=== PATIENT | male | born 1955 | race Caucasian/White ===

== ENCOUNTER 2018-03-18 10:15 | Day surgery (SDC) | payer OTHER, MEDICARE ==
[2018-03-18] MEDS ORDERED: PROPOFOL 20 ML (11:04)
[2018-03-18] MEDS ORDERED: MIDAZOLAM 1 MG/ML 2 ML INJ (11:04)
[2018-03-18] MEDS: CEFAZOLIN 1 GM/50 ML (PMX) 50 ML IVPB (11:04)
[2018-03-18] MEDS ORDERED: FENTAnyl 50 MCG/ML VIAL (11:04)
== END 2018-03-18 14:33 | disposition home or self-care (01) ==
LOC: GIL 10:15
DX: R13.10 Dysphagia, unspecified (principal); Z86.73 Personal history of transient ischemic attack (TIA), and cerebral infarction without residual deficits; E11.9 Type 2 diabetes mellitus without complications; I10 Essential (primary) hypertension
CPT/HCPCS: 43246

== ENCOUNTER 2018-03-23 00:31 | Inpatient (IN) | payer MEDICARE, OTHER ==
[2018-03-23] MEDS ORDERED: ACETAMINOPHEN 650MG/20.3ML CUP GTB (03:00)
[2018-03-23] MEDS ORDERED: hydrALAzine 20 MG INJ IV (03:00)
[2018-03-23] MEDS: DEXTROSE 5%-0.9% NACL 1,000 ML IV ×2 (03:00→19:41)
[2018-03-23] MEDS ORDERED: ONDANSETRON 4 MG INJ IV (03:00)
[2018-03-23] MEDS ORDERED: DEXTROSE 50% 50 ML SYRINGE IV ×2 (03:30)
[2018-03-23] MEDS ORDERED: GLUCOSE GEL 15 GRAM TUBE PO ×2 (03:30)
[2018-03-23] MEDS ORDERED: GLUCOSE GEL 15 GRAM TUBE BUCCAL (03:30)
[2018-03-23] MEDS ORDERED: GLUCAGON 1 MG INJ IM (03:30)
[2018-03-23] MEDS: PIPER-TAZO 3.375 GM IV (PMX) 100 ML IVPB ×3 (06:26→21:44)
[2018-03-23] MEDS: INSULIN ASPART [NOVOLOG] 3 ML PEN SC ×4 (08:37→23:58)
[2018-03-23] MEDS: INSULIN GLARGINE [LANtus] 3 ML PEN SC (08:37)
[2018-03-23] MEDS: HEPARIN 5,000 UNIT/0.5 ML VIAL SC ×2 (08:38→21:42)
[2018-03-23] MEDS: GABAPENTIN 100 MG CAP GTB ×2 (08:45→21:00)
[2018-03-23] MEDS: AMLODIPINE 5 MG TAB GTB ×2 (08:45→21:00)
[2018-03-23] MEDS: LABETALOL 200 MG TAB PO ×3 (08:46→21:00)
[2018-03-23] MEDS: LISINOPRIL 20 MG TAB GTB ×2 (08:46→21:00)
[2018-03-23] MEDS: FAMOTIDINE 20 MG INJ IV ×2 (08:49→21:41)
[2018-03-23 09:42] LABS: ABNORMAL IP MESSAGE 1; HEMATOCRIT 37.3 % (42.0-52.0); HEMOGLOBIN 12.3 g/dl (14.0-18.0); MEAN CORPUSCULAR HEMOGLOBIN 27.5 pg (29.0-33.0); MEAN CORPUSCULAR VOLUME 83.3 fl (82.0-101.0); MEAN PLATELET VOLUME 11.4 fl (7.4-10.4); PLATELET COUNT 501 10^3/UL (140-415); POSITIVE DIFF @See below; RED BLOOD COUNT 4.48 10^6/ul (4.70-6.10)
[2018-03-23 09:48] LABS: ADD MAN DIFF? YES
[2018-03-23 09:57] LABS: ANION GAP 15 (8-16); BLOOD UREA NITROGEN 33 mg/dl (7-20); CALCIUM 9.4 mg/dl (8.4-10.2); CARBON DIOXIDE 27 mmol/L (21-31); CHLORIDE 109 mmol/L (97-110); CREATININE 1.75 mg/dl (0.61-1.24); GLUCOSE 219 mg/dl (70-220); POTASSIUM 3.9 mmol/L (3.5-5.1); SODIUM 147 mmol/L (135-144)
[2018-03-23 09:58] LABS: PHOSPHORUS 4.6 mg/dl (2.5-4.9)
[2018-03-23 10:17] LABS: ANISOCYTOSIS 1+ (0-0); BAND NEUTROPHILS #M 1.6 10^3/ul (0.0-0.6); BAND NEUTROPHILS % (M) 6 % (0-4); GIANT THROMBO% (M) 2 % (0-0); LYMPHOCYTES #M 1.6 10^3/ul (0.8-2.9); LYMPHOCYTES % (M) 6 % (15-51); MICROCYTOSIS 1+ (0-0); MONOCYTE #M 1.3 10^3/ul (0.3-0.9); MONOCYTES % (M) 5 % (0-11); PLATELET ESTIMATE NORMAL; POIKILOCYTOSIS 1+ (0-0); REACTIVE LYMPHOCYTES #M 0.5 10^3/ul (0.0-0.0); REACTIVE LYMPHOCYTES% (M) 2 % (0-0); SEG NEUT #M 22.3 10^3/ul (1.6-7.5); SEGMENTED NEUTROPHILS (M) % 81 % (39-77)
[2018-03-23] MEDS: Discontinue current oral sulfonylureas (glyburide, glipizide, and/or glimepiride) prior to XX (10:50)
[2018-03-23] MEDS: HYPOGLYCEMIA PROTOCOL when Glucose is <70 mg/dL or symptomatic <90 mg/dL. XX (10:50)
[2018-03-23] MEDS: LORAZEPAM 2 MG INJ IV (22:53)
[2018-03-24] MEDS: LORAZEPAM 2 MG INJ IV ×2 (04:29→19:35)
[2018-03-24] MEDS: PIPER-TAZO 3.375 GM IV (PMX) 100 ML IVPB ×3 (05:29→22:11)
[2018-03-24] MEDS: INSULIN ASPART [NOVOLOG] 3 ML PEN SC ×4 (05:42→23:52)
[2018-03-24] MEDS: INSULIN GLARGINE [LANtus] 3 ML PEN SC (08:48)
[2018-03-24] MEDS: FAMOTIDINE 20 MG INJ IV ×2 (08:54→20:29)
[2018-03-24] MEDS: GABAPENTIN 100 MG CAP GTB ×2 (08:55→20:04)
[2018-03-24] MEDS: LABETALOL 200 MG TAB PO ×3 (08:55→20:04)
[2018-03-24] MEDS: AMLODIPINE 5 MG TAB GTB ×2 (08:55→20:04)
[2018-03-24] MEDS: LISINOPRIL 20 MG TAB GTB ×2 (08:55→20:04)
[2018-03-24] MEDS: HEPARIN 5,000 UNIT/0.5 ML VIAL SC ×2 (08:57→20:03)
[2018-03-24] MEDS: LABETALOL HCL 20MG INJ IV (10:44)
[2018-03-24 10:59] LABS: ADD MAN DIFF? NO
[2018-03-24 11:04] LABS: WHITE BLOOD COUNT 14.6 10^3/ul (4.8-10.8)
[2018-03-24 11:04] LABS: BASOPHILS % 0.2 % (0.0-2.0); EOSINOPHILS % 0.1 % (0.0-7.0); HEMATOCRIT 36.5 % (42.0-52.0); HEMOGLOBIN 11.8 g/dl (14.0-18.0); LYMPHOCYTES # 1.4 10^3/ul (0.8-2.9); LYMPHOCYTES % 9.4 % (15.0-51.0); MEAN CORPUSCULAR HEMOGLOBIN 27.8 pg (29.0-33.0); MEAN CORPUSCULAR HGB CONC 32.3 g/dl (32.0-37.0); MEAN CORPUSCULAR VOLUME 85.9 fl (82.0-101.0); MEAN PLATELET VOLUME 11.3 fl (7.4-10.4); MONOCYTE # 0.8 10^3/ul (0.3-0.9); MONOCYTES % 5.5 % (0.0-11.0); NEUTROPHIL # 12.3 10^3/ul (1.6-7.5); NEUTROPHILS % 84.4 % (39.0-77.0); PLATELET COUNT 458 10^3/UL (140-415); RED BLOOD COUNT 4.25 10^6/ul (4.70-6.10); RED CELL DISTRIBUTION WIDTH 14.2 % (11.5-14.5)
[2018-03-24 11:25] LABS: ALANINE AMINOTRANSFERASE 24 IU/L (13-69); ALBUMIN 3.7 g/dl (3.3-4.9); ALKALINE PHOSPHATASE 133 IU/L (42-121); ANION GAP 16 (8-16); ASPARTATE AMINO TRANSFERASE 20 IU/L (15-46); BILIRUBIN,INDIRECT 0.3 mg/dl (0-1.1); BILIRUBIN,TOTAL 0.3 mg/dl (0.2-1.3); BLOOD UREA NITROGEN 31 mg/dl (7-20); CALCIUM 9.2 mg/dl (8.4-10.2); CARBON DIOXIDE 24 mmol/L (21-31); CHLORIDE 115 mmol/L (97-110); CREATININE 1.55 mg/dl (0.61-1.24); GLUCOSE 168 mg/dl (70-220); POTASSIUM 3.5 mmol/L (3.5-5.1); SODIUM 151 mmol/L (135-144); TOTAL PROTEIN 7.8 g/dl (6.1-8.1)
[2018-03-24] MEDS: CLONIDINE 0.1 MG/24 HR PATCH TRANSDERM (12:20)
[2018-03-24] MEDS: DEXTROSE 5%-0.9% NACL 1,000 ML IV (14:56)
[2018-03-24] MEDS: DEXTROSE 5% 1,000 ML IV (16:48)
[2018-03-24 17:57] LABS: ADD UMIC YES; UR AMORPHOUS CRYSTAL FEW /HPF (NONE SEEN); UR ASCORBIC ACID NEGATIVE (NEGATIVE); UR BILIRUBIN (Dip) NEGATIVE (NEGATIVE); UR BLOOD (Dip) 2+ mg/dL (NEGATIVE); UR CLARITY CLOUDY (CLEAR); UR COLOR YELLOW (YELLOW); UR GLUCOSE (Dip) NEGATIVE (NEGATIVE); UR KETONES (Dip) NEGATIVE (NEGATIVE); UR LEUKOCYTE ESTERASE (Dip) NEGATIVE Leu/ul (NEGATIVE); UR MUCUS FEW /HPF (NONE SEEN); UR NITRITE (Dip) NEGATIVE (NEGATIVE); UR RBC 94 /HPF (0-5); UR SPECIFIC GRAVITY (Dip) 1.017 (1.003-1.030); UR TOTAL PROTEIN (Dip) 1+ mg/dl (NEGATIVE); UR URIC ACID CRYSTAL FEW /HPF (NONE SEEN); UR UROBILINOGEN (Dip) NEGATIVE (NEGATIVE); UR WBC 5 /HPF (0-5)
[2018-03-24 18:11] LABS: SODIUM,URINE RANDOM 68 mmol/L (30-90)
[2018-03-25] MEDS: LORAZEPAM 2 MG INJ IV ×4 (00:14→20:26)
[2018-03-25] MEDS: DEXTROSE 5% 1,000 ML IV ×4 (04:02→22:20)
[2018-03-25] MEDS: INSULIN ASPART [NOVOLOG] 3 ML PEN SC ×3 (06:00→18:48)
[2018-03-25] MEDS: PIPER-TAZO 3.375 GM IV (PMX) 100 ML IVPB ×3 (06:35→22:16)
[2018-03-25 06:59] LABS: ADD MAN DIFF? NO
[2018-03-25 07:12] LABS: BASOPHIL # 0.1 10^3/ul (0.0-0.1); BASOPHILS % 0.4 % (0.0-2.0); EOSINOPHILS # 0.1 10^3/ul (0.0-0.5); EOSINOPHILS % 0.4 % (0.0-7.0); HEMATOCRIT 37.8 % (42.0-52.0); HEMOGLOBIN 11.9 g/dl (14.0-18.0); LYMPHOCYTES # 1.8 10^3/ul (0.8-2.9); LYMPHOCYTES % 15.1 % (15.0-51.0); MEAN CORPUSCULAR HEMOGLOBIN 27.3 pg (29.0-33.0); MEAN CORPUSCULAR HGB CONC 31.5 g/dl (32.0-37.0); MEAN CORPUSCULAR VOLUME 86.7 fl (82.0-101.0); MEAN PLATELET VOLUME 11.5 fl (7.4-10.4); MONOCYTE # 0.8 10^3/ul (0.3-0.9); NEUTROPHIL # 8.9 10^3/ul (1.6-7.5); NEUTROPHILS % 76.7 % (39.0-77.0); PLATELET COUNT 492 10^3/UL (140-415); RED BLOOD COUNT 4.36 10^6/ul (4.70-6.10)
[2018-03-25 07:12] LABS: WHITE BLOOD COUNT 11.6 10^3/ul (4.8-10.8)
[2018-03-25 07:20] LABS: ANION GAP 19 (8-16); BLOOD UREA NITROGEN 25 mg/dl (7-20); CALCIUM 9.3 mg/dl (8.4-10.2); CARBON DIOXIDE 25 mmol/L (21-31); CHLORIDE 114 mmol/L (97-110); CREATININE 1.41 mg/dl (0.61-1.24); GLUCOSE 139 mg/dl (70-220); MAGNESIUM 2.2 mg/dl (1.7-2.5); PHOSPHORUS 3.6 mg/dl (2.5-4.9); POTASSIUM 3.5 mmol/L (3.5-5.1); SODIUM 154 mmol/L (135-144)
[2018-03-25] MEDS: INSULIN GLARGINE [LANtus] 3 ML PEN SC (08:00)
[2018-03-25] MEDS ORDERED: PENDING SANTYL ORDER FOR WOUND CARE XX (08:00)
[2018-03-25] MEDS: AMLODIPINE 5 MG TAB GTB ×2 (08:02→21:00)
[2018-03-25] MEDS: GABAPENTIN 100 MG CAP GTB ×2 (08:02→21:00)
[2018-03-25] MEDS: FAMOTIDINE 20 MG INJ IV ×2 (08:02→20:11)
[2018-03-25] MEDS: LISINOPRIL 20 MG TAB GTB ×2 (08:03→21:00)
[2018-03-25] MEDS: LABETALOL 200 MG TAB PO ×3 (08:03→21:00)
[2018-03-25] MEDS: HEPARIN 5,000 UNIT/0.5 ML VIAL SC ×2 (08:08→22:17)
[2018-03-25] MEDS: LABETALOL HCL 20MG INJ IV ×3 (10:30→20:10)
[2018-03-25] MEDS: ASPIRIN 300 MG SUPP PR (11:00)
[2018-03-25] MEDS: LIDOCAINE 2% (SDV) 5 ML INJ (11:26)
[2018-03-25] MEDS: PROPOFOL 40 ML (11:26)
[2018-03-25] MEDS: MIDAZOLAM 1 MG/ML 2 ML INJ ×2 (11:26→11:34)
[2018-03-25] MEDS: CEFAZOLIN 2 GM/50 ML (PMX) 50 ML IVPB (11:35)
[2018-03-25] MEDS: hydrALAzine 20 MG INJ IV (13:18)
[2018-03-25 15:50] LABS: ANION GAP 15 (8-16); BLOOD UREA NITROGEN 21 mg/dl (7-20); CALCIUM 8.2 mg/dl (8.4-10.2); CARBON DIOXIDE 23 mmol/L (21-31); CHLORIDE 101 mmol/L (97-110); CREATININE 1.08 mg/dl (0.61-1.24); SODIUM 136 mmol/L (135-144)
[2018-03-25 15:55] LABS: GLUCOSE 621 mg/dl (70-220)
[2018-03-25] MEDS: CLONIDINE 0.3 MG/24 HR PATCH TRANSDERM (18:24)
[2018-03-25 18:42] LABS: ANION GAP 17 (8-16); BLOOD UREA NITROGEN 22 mg/dl (7-20); CALCIUM 9.2 mg/dl (8.4-10.2); CARBON DIOXIDE 23 mmol/L (21-31); CHLORIDE 114 mmol/L (97-110); CREATININE 1.16 mg/dl (0.61-1.24); GLUCOSE 152 mg/dl (70-220); POTASSIUM 3.4 mmol/L (3.5-5.1); SODIUM 151 mmol/L (135-144)
[2018-03-26] MEDS: LORAZEPAM 2 MG INJ IV ×4 (00:49→14:04)
[2018-03-26] MEDS: hydrALAzine 20 MG INJ IV ×3 (01:01→16:17)
[2018-03-26] MEDS: DEXTROSE 5% 1,000 ML IV (02:30)
[2018-03-26] MEDS: PIPER-TAZO 3.375 GM IV (PMX) 100 ML IVPB ×3 (05:03→21:36)
[2018-03-26] MEDS: LABETALOL HCL 20MG INJ IV ×2 (05:03→15:16)
[2018-03-26] MEDS: INSULIN ASPART [NOVOLOG] 3 ML PEN SC ×4 (06:00→17:33)
[2018-03-26] MEDS: INSULIN GLARGINE [LANtus] 3 ML PEN SC (08:00)
[2018-03-26] MEDS: FAMOTIDINE 20 MG INJ IV ×2 (08:47→21:37)
[2018-03-26] MEDS: GABAPENTIN 100 MG CAP GTB ×2 (08:54→21:00)
[2018-03-26] MEDS: AMLODIPINE 5 MG TAB GTB ×2 (08:54→21:00)
[2018-03-26] MEDS: LISINOPRIL 20 MG TAB GTB ×2 (08:54→21:00)
[2018-03-26] MEDS: HEPARIN 5,000 UNIT/0.5 ML VIAL SC ×2 (08:55→21:39)
[2018-03-26] MEDS: LABETALOL 200 MG TAB PO ×3 (08:55→21:00)
[2018-03-26] MEDS: ASPIRIN 300 MG SUPP PR (08:55)
[2018-03-26] MEDS: BALSAM PERU/CASTOR OIL 60 GM TUBE TOP (09:09)
[2018-03-26 09:12] LABS: ADD MAN DIFF? NO
[2018-03-26 09:15] LABS: WHITE BLOOD COUNT 9.3 10^3/ul (4.8-10.8)
[2018-03-26 09:15] LABS: BASOPHILS % 0.4 % (0.0-2.0); EOSINOPHILS # 0.1 10^3/ul (0.0-0.5); EOSINOPHILS % 1.2 % (0.0-7.0); HEMATOCRIT 38.2 % (42.0-52.0); LYMPHOCYTES # 1.5 10^3/ul (0.8-2.9); LYMPHOCYTES % 16.3 % (15.0-51.0); MEAN CORPUSCULAR HEMOGLOBIN 27.4 pg (29.0-33.0); MEAN CORPUSCULAR HGB CONC 31.4 g/dl (32.0-37.0); MEAN CORPUSCULAR VOLUME 87.2 fl (82.0-101.0); MEAN PLATELET VOLUME 11.5 fl (7.4-10.4); MONOCYTE # 0.6 10^3/ul (0.3-0.9); MONOCYTES % 6.6 % (0.0-11.0); NEUTROPHILS % 75.2 % (39.0-77.0); PLATELET COUNT 462 10^3/UL (140-415); RED BLOOD COUNT 4.38 10^6/ul (4.70-6.10); RED CELL DISTRIBUTION WIDTH 14.3 % (11.5-14.5)
[2018-03-26] MEDS: D5W + KCL 20 MEQ 1,000 ML IV (09:18)
[2018-03-26 09:47] LABS: ANION GAP 18 (8-16); BLOOD UREA NITROGEN 21 mg/dl (7-20); CALCIUM 9.1 mg/dl (8.4-10.2); CARBON DIOXIDE 24 mmol/L (21-31); CHLORIDE 113 mmol/L (97-110); CREATININE 1.13 mg/dl (0.61-1.24); GLUCOSE 163 mg/dl (70-220); MAGNESIUM 2.1 mg/dl (1.7-2.5); PHOSPHORUS 3.9 mg/dl (2.5-4.9); POTASSIUM 3.4 mmol/L (3.5-5.1); SODIUM 152 mmol/L (135-144)
[2018-03-26 14:56] LABS: CREATININE, RANDOM URINE 135 mg/dL (20-370); MICROALBUMIN 7.8 mg/dL; MICROALBUMIN/CREATININE RATIO 58 (<30)
[2018-03-26 16:37] LABS: PROTIME 14.8 Sec (11.9-14.9)
[2018-03-27] MEDS: D5W + KCL 20 MEQ 1,000 ML IV ×3 (00:28→21:28)
[2018-03-27] MEDS: BALSAM PERU/CASTOR OIL 60 GM TUBE TOP ×3 (00:28→21:00)
[2018-03-27] MEDS: INSULIN ASPART [NOVOLOG] 3 ML PEN SC ×4 (00:30→18:00)
[2018-03-27] MEDS: LORAZEPAM 2 MG INJ IV ×3 (01:33→09:16)
[2018-03-27] MEDS: PIPER-TAZO 3.375 GM IV (PMX) 100 ML IVPB ×3 (05:16→21:26)
[2018-03-27 08:43] LABS: ADD MAN DIFF? NO
[2018-03-27 08:50] LABS: WHITE BLOOD COUNT 8.5 10^3/ul (4.8-10.8)
[2018-03-27 08:50] LABS: BASOPHIL # 0.1 10^3/ul (0.0-0.1); BASOPHILS % 0.6 % (0.0-2.0); EOSINOPHILS # 0.4 10^3/ul (0.0-0.5); EOSINOPHILS % 4.8 % (0.0-7.0); HEMATOCRIT 36.7 % (42.0-52.0); HEMOGLOBIN 11.6 g/dl (14.0-18.0); LYMPHOCYTES # 2.3 10^3/ul (0.8-2.9); LYMPHOCYTES % 27.5 % (15.0-51.0); MEAN CORPUSCULAR HEMOGLOBIN 27.4 pg (29.0-33.0); MEAN CORPUSCULAR HGB CONC 31.6 g/dl (32.0-37.0); MEAN CORPUSCULAR VOLUME 86.8 fl (82.0-101.0); MEAN PLATELET VOLUME 11.2 fl (7.4-10.4); MONOCYTE # 0.6 10^3/ul (0.3-0.9); MONOCYTES % 7.4 % (0.0-11.0); NEUTROPHIL # 5.1 10^3/ul (1.6-7.5); NEUTROPHILS % 59.2 % (39.0-77.0); PLATELET COUNT 438 10^3/UL (140-415); RED BLOOD COUNT 4.23 10^6/ul (4.70-6.10)
[2018-03-27] MEDS: GABAPENTIN 100 MG CAP GTB ×2 (09:00→21:00)
[2018-03-27] MEDS: LABETALOL 200 MG TAB PO ×3 (09:00→21:00)
[2018-03-27] MEDS: AMLODIPINE 5 MG TAB GTB ×2 (09:00→21:00)
[2018-03-27] MEDS: ASPIRIN 300 MG SUPP PR (09:00)
[2018-03-27] MEDS: LISINOPRIL 20 MG TAB GTB ×2 (09:00→21:00)
[2018-03-27] MEDS: INSULIN GLARGINE [LANtus] 3 ML PEN SC (09:06)
[2018-03-27] MEDS: HEPARIN 5,000 UNIT/0.5 ML VIAL SC ×2 (09:07→21:39)
[2018-03-27] MEDS: FAMOTIDINE 20 MG INJ IV ×2 (09:07→21:33)
[2018-03-27 09:18] LABS: ANION GAP 14 (8-16); BLOOD UREA NITROGEN 19 mg/dl (7-20); CALCIUM 8.8 mg/dl (8.4-10.2); CARBON DIOXIDE 26 mmol/L (21-31); CHLORIDE 111 mmol/L (97-110); CREATININE 1.02 mg/dl (0.61-1.24); GLUCOSE 188 mg/dl (70-220); MAGNESIUM 1.9 mg/dl (1.7-2.5); PHOSPHORUS 3.6 mg/dl (2.5-4.9); POTASSIUM 3.7 mmol/L (3.5-5.1); SODIUM 147 mmol/L (135-144)
[2018-03-27] MEDS: hydrALAzine 20 MG INJ IV ×2 (10:26→21:45)
[2018-03-27] MEDS: LORAZEPAM 2 MG INJ IM ×2 (17:44→19:56)
[2018-03-28 00:09] LABS: PROTIME 14.4 Sec (11.9-14.9); PT RATIO 1.1
[2018-03-28] MEDS: LORAZEPAM 2 MG INJ IV ×4 (00:35→18:36)
[2018-03-28] MEDS: PIPER-TAZO 3.375 GM IV (PMX) 100 ML IVPB ×3 (05:42→21:05)
[2018-03-28] MEDS: INSULIN ASPART [NOVOLOG] 3 ML PEN SC ×5 (05:47→23:43)
[2018-03-28 08:01] LABS: ADD MAN DIFF? NO
[2018-03-28 08:12] LABS: WHITE BLOOD COUNT 8.3 10^3/ul (4.8-10.8)
[2018-03-28 08:12] LABS: BASOPHIL # 0.1 10^3/ul (0.0-0.1); BASOPHILS % 0.7 % (0.0-2.0); EOSINOPHILS # 0.3 10^3/ul (0.0-0.5); EOSINOPHILS % 3.5 % (0.0-7.0); HEMATOCRIT 38.1 % (42.0-52.0); LYMPHOCYTES % 23.5 % (15.0-51.0); MEAN CORPUSCULAR HEMOGLOBIN 27.3 pg (29.0-33.0); MEAN CORPUSCULAR HGB CONC 31.5 g/dl (32.0-37.0); MEAN CORPUSCULAR VOLUME 86.6 fl (82.0-101.0); MEAN PLATELET VOLUME 11.1 fl (7.4-10.4); MONOCYTE # 0.7 10^3/ul (0.3-0.9); MONOCYTES % 7.8 % (0.0-11.0); NEUTROPHIL # 5.3 10^3/ul (1.6-7.5); PLATELET COUNT 425 10^3/UL (140-415)
[2018-03-28 08:32] LABS: ANION GAP 15 (8-16); BLOOD UREA NITROGEN 16 mg/dl (7-20); CALCIUM 9.4 mg/dl (8.4-10.2); CARBON DIOXIDE 27 mmol/L (21-31); CHLORIDE 109 mmol/L (97-110); CREATININE 1.08 mg/dl (0.61-1.24); GLUCOSE 118 mg/dl (70-220); MAGNESIUM 1.8 mg/dl (1.7-2.5); PHOSPHORUS 3.5 mg/dl (2.5-4.9); POTASSIUM 3.4 mmol/L (3.5-5.1); SODIUM 148 mmol/L (135-144)
[2018-03-28] MEDS: GABAPENTIN 100 MG CAP GTB ×2 (09:00→21:00)
[2018-03-28] MEDS: ASPIRIN 300 MG SUPP PR (09:00)
[2018-03-28] MEDS: LABETALOL 200 MG TAB PO ×3 (09:00→21:00)
[2018-03-28] MEDS: AMLODIPINE 5 MG TAB GTB ×2 (09:00→21:00)
[2018-03-28] MEDS: LISINOPRIL 20 MG TAB GTB ×2 (09:00→21:00)
[2018-03-28] MEDS: FAMOTIDINE 20 MG INJ IV ×2 (09:46→21:05)
[2018-03-28] MEDS: BALSAM PERU/CASTOR OIL 60 GM TUBE TOP ×2 (09:47→21:00)
[2018-03-28] MEDS: INSULIN GLARGINE [LANtus] 3 ML PEN SC (09:48)
[2018-03-28] MEDS: D5W + KCL 20 MEQ 1,000 ML IV ×2 (13:25→23:39)
[2018-03-28] MEDS ORDERED: LIDOCAINE 1%/EPI 30 ML INJ (15:44)
[2018-03-28] MEDS ORDERED: BUPIVACAINE 0.25% (MPF) 30 ML INJ (15:44)
[2018-03-28] MEDS: LIDOCAINE 1%/EPI 30 ML INJ INJ (15:45)
[2018-03-28] MEDS: BUPIVACAINE 0.25% (STERILE-PAK) 30 ML INJ INJ (15:45)
[2018-03-28] MEDS ORDERED: FENTAnyl 50 MCG/ML VIAL ×2 (16:03→16:39)
[2018-03-28] MEDS ORDERED: MIDAZOLAM 1 MG/ML 2 ML INJ (16:03)
[2018-03-28] MEDS ORDERED: ROCURONIUM 50 MG INJ (18:02)
[2018-03-28] MEDS ORDERED: LIDOCAINE 2% (SDV) 5 ML INJ (18:02)
[2018-03-28] MEDS ORDERED: GLYCOPYRROLATE 0.4 MG INJ (18:02)
[2018-03-28] MEDS ORDERED: ETOMIDATE 20 MG INJ (18:02)
[2018-03-28] MEDS ORDERED: NEOSTIGMINE 3 MG/3 ML SYRINGE (18:02)
[2018-03-28] MEDS ORDERED: CEFAZOLIN 1 GM INJ (18:03)
[2018-03-28] MEDS ORDERED: metroNIDAZOLE 500 MG/NS (PMX) 100 ML IVPB (18:03)
[2018-03-28] MEDS ORDERED: HYDROCODONE/APAP (5/325) TAB GTB (18:30)
[2018-03-28] MEDS ORDERED: hydrALAzine 20 MG INJ IV (19:00)
[2018-03-28] MEDS: HYDROmorphONE 0.5 MG/0.5 ML SYG IV (20:09)
[2018-03-29] MEDS: LORAZEPAM 2 MG INJ IV ×2 (00:46→09:41)
[2018-03-29] MEDS: HYDROmorphONE 0.5 MG/0.5 ML SYG IV ×2 (04:19→17:25)
[2018-03-29] MEDS: INSULIN ASPART [NOVOLOG] 3 ML PEN SC ×4 (05:22→20:37)
[2018-03-29] MEDS: PIPER-TAZO 3.375 GM IV (PMX) 100 ML IVPB ×3 (05:22→21:43)
[2018-03-29 07:07] LABS: ADD MAN DIFF? NO
[2018-03-29 07:15] LABS: BASOPHILS % 0.4 % (0.0-2.0); EOSINOPHILS # 0.1 10^3/ul (0.0-0.5); EOSINOPHILS % 1.4 % (0.0-7.0); HEMATOCRIT 37.3 % (42.0-52.0); HEMOGLOBIN 11.5 g/dl (14.0-18.0); LYMPHOCYTES # 1.6 10^3/ul (0.8-2.9); LYMPHOCYTES % 15.6 % (15.0-51.0); MEAN CORPUSCULAR HEMOGLOBIN 27.1 pg (29.0-33.0); MEAN CORPUSCULAR HGB CONC 30.8 g/dl (32.0-37.0); MONOCYTE # 0.7 10^3/ul (0.3-0.9); MONOCYTES % 6.6 % (0.0-11.0); NEUTROPHIL # 7.4 10^3/ul (1.6-7.5); NEUTROPHILS % 74.7 % (39.0-77.0); PLATELET COUNT 338 10^3/UL (140-415); RED BLOOD COUNT 4.24 10^6/ul (4.70-6.10); RED CELL DISTRIBUTION WIDTH 14.2 % (11.5-14.5)
[2018-03-29 07:15] LABS: WHITE BLOOD COUNT 9.9 10^3/ul (4.8-10.8)
[2018-03-29 07:38] LABS: ANION GAP 15 (8-16); BLOOD UREA NITROGEN 18 mg/dl (7-20); CALCIUM 8.2 mg/dl (8.4-10.2); CARBON DIOXIDE 22 mmol/L (21-31); CHLORIDE 113 mmol/L (97-110); CREATININE 1.16 mg/dl (0.61-1.24); GLUCOSE 99 mg/dl (70-220); MAGNESIUM 1.9 mg/dl (1.7-2.5); PHOSPHORUS 4.3 mg/dl (2.5-4.9); POTASSIUM 4.1 mmol/L (3.5-5.1); SODIUM 146 mmol/L (135-144)
[2018-03-29] MEDS: AMLODIPINE 5 MG TAB GTB ×2 (08:54→21:42)
[2018-03-29] MEDS: LISINOPRIL 20 MG TAB GTB ×2 (08:54→21:42)
[2018-03-29] MEDS: GABAPENTIN 100 MG CAP GTB ×2 (08:54→21:40)
[2018-03-29] MEDS: LABETALOL 200 MG TAB PO ×3 (08:54→21:42)
[2018-03-29] MEDS: ASPIRIN 300 MG SUPP PR (09:00)
[2018-03-29] MEDS: BALSAM PERU/CASTOR OIL 60 GM TUBE TOP ×2 (09:40→21:43)
[2018-03-29] MEDS: FAMOTIDINE 20 MG INJ IV ×2 (09:40→21:39)
[2018-03-29] MEDS: INSULIN GLARGINE [LANtus] 3 ML PEN SC (09:40)
[2018-03-29] MEDS: HEPARIN 5,000 UNIT/0.5 ML VIAL SC ×2 (09:41→21:49)
[2018-03-29] MEDS: ASPIRIN 81 MG TAB GTB (16:30)
[2018-03-29] MEDS: D5W + KCL 20 MEQ 1,000 ML IV (16:31)
[2018-03-29] MEDS: LABETALOL HCL 20MG INJ IV (17:26)
[2018-03-30] MEDS: INSULIN ASPART [NOVOLOG] 3 ML PEN SC ×6 (01:09→21:00)
[2018-03-30] MEDS: HYDROmorphONE 0.5 MG/0.5 ML SYG IV ×2 (01:17→23:38)
[2018-03-30] MEDS: PIPER-TAZO 3.375 GM IV (PMX) 100 ML IVPB ×3 (05:11→23:38)
[2018-03-30] MEDS: D5W + KCL 20 MEQ 1,000 ML IV ×2 (05:11→21:40)
[2018-03-30] MEDS: ASPIRIN 81 MG TAB GTB (09:20)
[2018-03-30] MEDS: LABETALOL 200 MG TAB PO ×3 (09:20→20:53)
[2018-03-30] MEDS: AMLODIPINE 5 MG TAB GTB ×2 (09:22→20:54)
[2018-03-30] MEDS: LISINOPRIL 20 MG TAB GTB ×2 (09:22→20:54)
[2018-03-30] MEDS: GABAPENTIN 100 MG CAP GTB ×2 (09:25→20:53)
[2018-03-30] MEDS: FAMOTIDINE 20 MG INJ IV ×2 (09:26→20:54)
[2018-03-30] MEDS: HEPARIN 5,000 UNIT/0.5 ML VIAL SC ×2 (09:38→21:15)
[2018-03-30] MEDS: INSULIN GLARGINE [LANtus] 3 ML PEN SC (09:38)
[2018-03-30] MEDS: BALSAM PERU/CASTOR OIL 60 GM TUBE TOP ×2 (09:39→21:16)
[2018-03-30] MEDS: QUETIAPINE 25 MG TAB GTB ×2 (11:04→20:53)
[2018-03-31] MEDS: INSULIN ASPART [NOVOLOG] 3 ML PEN SC ×6 (01:00→20:43)
[2018-03-31] MEDS: LORAZEPAM 2 MG INJ IM (02:59)
[2018-03-31] MEDS: PIPER-TAZO 3.375 GM IV (PMX) 100 ML IVPB ×3 (06:28→21:59)
[2018-03-31] MEDS: HYDROmorphONE 0.5 MG/0.5 ML SYG IV (08:08)
[2018-03-31] MEDS: FAMOTIDINE 20 MG INJ IV ×2 (08:18→20:31)
[2018-03-31] MEDS: GABAPENTIN 100 MG CAP GTB ×2 (08:19→20:30)
[2018-03-31] MEDS: LABETALOL 200 MG TAB PO ×3 (08:20→22:00)
[2018-03-31] MEDS: HEPARIN 5,000 UNIT/0.5 ML VIAL SC ×2 (08:24→20:48)
[2018-03-31] MEDS: QUETIAPINE 25 MG TAB GTB ×2 (08:27→20:29)
[2018-03-31] MEDS: INSULIN GLARGINE [LANtus] 3 ML PEN SC (08:34)
[2018-03-31] MEDS: BALSAM PERU/CASTOR OIL 60 GM TUBE TOP ×2 (08:36→20:43)
[2018-03-31] MEDS: ASPIRIN 81 MG TAB GTB (09:01)
[2018-03-31] MEDS: AMLODIPINE 5 MG TAB GTB ×2 (11:19→20:32)
[2018-03-31] MEDS: LISINOPRIL 20 MG TAB GTB ×2 (11:20→20:30)
[2018-03-31 13:48] LABS: ADD MAN DIFF? NO
[2018-03-31 13:50] LABS: WHITE BLOOD COUNT 6.8 10^3/ul (4.8-10.8)
[2018-03-31 13:50] LABS: BASOPHILS % 0.4 % (0.0-2.0); EOSINOPHILS # 0.6 10^3/ul (0.0-0.5); EOSINOPHILS % 8.4 % (0.0-7.0); HEMATOCRIT 33.6 % (42.0-52.0); HEMOGLOBIN 10.8 g/dl (14.0-18.0); LYMPHOCYTES # 1.9 10^3/ul (0.8-2.9); LYMPHOCYTES % 27.6 % (15.0-51.0); MEAN CORPUSCULAR HEMOGLOBIN 27.8 pg (29.0-33.0); MEAN CORPUSCULAR HGB CONC 32.1 g/dl (32.0-37.0); MEAN CORPUSCULAR VOLUME 86.6 fl (82.0-101.0); MEAN PLATELET VOLUME 10.6 fl (7.4-10.4); MONOCYTE # 0.7 10^3/ul (0.3-0.9); MONOCYTES % 9.8 % (0.0-11.0); NEUTROPHIL # 3.6 10^3/ul (1.6-7.5); NEUTROPHILS % 53.4 % (39.0-77.0); PLATELET COUNT 274 10^3/UL (140-415); RED BLOOD COUNT 3.88 10^6/ul (4.70-6.10); RED CELL DISTRIBUTION WIDTH 13.8 % (11.5-14.5)
[2018-03-31 14:15] LABS: ANION GAP 12 (8-16); BLOOD UREA NITROGEN 12 mg/dl (7-20); CALCIUM 8.7 mg/dl (8.4-10.2); CARBON DIOXIDE 27 mmol/L (21-31); CHLORIDE 109 mmol/L (97-110); CREATININE 0.97 mg/dl (0.61-1.24); GLUCOSE 129 mg/dl (70-220); POTASSIUM 3.9 mmol/L (3.5-5.1); SODIUM 144 mmol/L (135-144)
[2018-03-31] MEDS: LORAZEPAM 2 MG INJ IV (15:47)
[2018-03-31] MEDS: hydrALAzine 20 MG INJ IV (17:15)
[2018-04-01] MEDS: INSULIN ASPART [NOVOLOG] 3 ML PEN SC ×6 (01:00→20:58)
[2018-04-01] MEDS: LORAZEPAM 2 MG INJ IV ×2 (02:17→21:14)
[2018-04-01] MEDS: HYDROmorphONE 0.5 MG/0.5 ML SYG IV (03:16)
[2018-04-01] MEDS: PIPER-TAZO 3.375 GM IV (PMX) 100 ML IVPB ×3 (06:10→21:25)
[2018-04-01 06:53] LABS: ADD MAN DIFF? NO
[2018-04-01 07:04] LABS: BASOPHILS % 0.6 % (0.0-2.0); EOSINOPHILS # 0.3 10^3/ul (0.0-0.5); EOSINOPHILS % 4.6 % (0.0-7.0); HEMATOCRIT 37.2 % (42.0-52.0); HEMOGLOBIN 11.9 g/dl (14.0-18.0); LYMPHOCYTES # 1.8 10^3/ul (0.8-2.9); MEAN CORPUSCULAR HEMOGLOBIN 27.4 pg (29.0-33.0); MEAN CORPUSCULAR VOLUME 85.5 fl (82.0-101.0); MEAN PLATELET VOLUME 11.1 fl (7.4-10.4); MONOCYTE # 0.7 10^3/ul (0.3-0.9); MONOCYTES % 10.5 % (0.0-11.0); PLATELET COUNT 279 10^3/UL (140-415); RED BLOOD COUNT 4.35 10^6/ul (4.70-6.10); RED CELL DISTRIBUTION WIDTH 14.1 % (11.5-14.5)
[2018-04-01 07:04] LABS: WHITE BLOOD COUNT 6.9 10^3/ul (4.8-10.8)
[2018-04-01 07:25] LABS: ANION GAP 18 (8-16); BLOOD UREA NITROGEN 14 mg/dl (7-20); CALCIUM 9.3 mg/dl (8.4-10.2); CARBON DIOXIDE 27 mmol/L (21-31); CHLORIDE 108 mmol/L (97-110); CREATININE 1.11 mg/dl (0.61-1.24); GLUCOSE 109 mg/dl (70-220); PHOSPHORUS 3.1 mg/dl (2.5-4.9); POTASSIUM 3.8 mmol/L (3.5-5.1); SODIUM 149 mmol/L (135-144)
[2018-04-01] MEDS: BALSAM PERU/CASTOR OIL 60 GM TUBE TOP ×2 (09:00→21:34)
[2018-04-01] MEDS: QUETIAPINE 25 MG TAB GTB ×2 (09:00→14:20)
[2018-04-01] MEDS: GABAPENTIN 100 MG CAP GTB ×2 (09:18→20:56)
[2018-04-01] MEDS: LISINOPRIL 20 MG TAB GTB ×2 (09:18→20:57)
[2018-04-01] MEDS: AMLODIPINE 5 MG TAB GTB ×2 (09:19→20:58)
[2018-04-01] MEDS: ASPIRIN 81 MG TAB GTB (09:19)
[2018-04-01] MEDS: LABETALOL 200 MG TAB PO ×3 (09:19→20:57)
[2018-04-01] MEDS: FAMOTIDINE 20 MG INJ IV ×2 (09:20→20:56)
[2018-04-01] MEDS: HYDROCODONE/APAP (5/325) TAB GTB ×2 (09:20→14:17)
[2018-04-01] MEDS: INSULIN GLARGINE [LANtus] 3 ML PEN SC (09:33)
[2018-04-01] MEDS: HEPARIN 5,000 UNIT/0.5 ML VIAL SC ×2 (09:33→20:58)
[2018-04-01] MEDS: CLONIDINE 0.3 MG/24 HR PATCH TRANSDERM (17:44)
[2018-04-01] MEDS: QUETIAPINE 25 MG TAB PO (20:58)
[2018-04-02] MEDS: INSULIN ASPART [NOVOLOG] 3 ML PEN SC ×6 (01:00→20:25)
[2018-04-02] MEDS: PIPER-TAZO 3.375 GM IV (PMX) 100 ML IVPB ×3 (05:24→20:23)
[2018-04-02] MEDS: HYDROmorphONE 0.5 MG/0.5 ML SYG IV (05:25)
[2018-04-02] MEDS: LORAZEPAM 2 MG INJ IV (07:08)
[2018-04-02] MEDS: QUETIAPINE 25 MG TAB PO ×2 (07:41→20:28)
[2018-04-02] MEDS: FAMOTIDINE 20 MG INJ IV (08:01)
[2018-04-02] MEDS: GABAPENTIN 100 MG CAP GTB ×2 (08:01→20:27)
[2018-04-02] MEDS: ASPIRIN 81 MG TAB GTB (08:02)
[2018-04-02] MEDS: AMLODIPINE 5 MG TAB GTB ×2 (08:02→20:35)
[2018-04-02] MEDS: BALSAM PERU/CASTOR OIL 60 GM TUBE TOP ×2 (08:02→20:24)
[2018-04-02] MEDS: LABETALOL 200 MG TAB PO ×3 (08:02→20:36)
[2018-04-02] MEDS: LISINOPRIL 20 MG TAB GTB ×2 (08:02→20:35)
[2018-04-02] MEDS: HEPARIN 5,000 UNIT/0.5 ML VIAL SC ×2 (08:12→20:54)
[2018-04-02] MEDS: INSULIN GLARGINE [LANtus] 3 ML PEN SC (08:12)
[2018-04-02] MEDS: HYDROCODONE/APAP (5/325) TAB GTB ×2 (09:17→16:23)
[2018-04-02 11:38] LABS: ADD MAN DIFF? NO
[2018-04-02 11:43] LABS: WHITE BLOOD COUNT 7.3 10^3/ul (4.8-10.8)
[2018-04-02 11:43] LABS: BASOPHILS % 0.5 % (0.0-2.0); EOSINOPHILS # 0.3 10^3/ul (0.0-0.5); EOSINOPHILS % 3.7 % (0.0-7.0); HEMOGLOBIN 10.8 g/dl (14.0-18.0); LYMPHOCYTES % 26.6 % (15.0-51.0); MEAN CORPUSCULAR HEMOGLOBIN 27.3 pg (29.0-33.0); MEAN CORPUSCULAR HGB CONC 31.8 g/dl (32.0-37.0); MEAN CORPUSCULAR VOLUME 85.9 fl (82.0-101.0); MEAN PLATELET VOLUME 11.3 fl (7.4-10.4); MONOCYTE # 0.7 10^3/ul (0.3-0.9); MONOCYTES % 9.3 % (0.0-11.0); NEUTROPHIL # 4.4 10^3/ul (1.6-7.5); NEUTROPHILS % 59.6 % (39.0-77.0); PLATELET COUNT 259 10^3/UL (140-415); RED BLOOD COUNT 3.96 10^6/ul (4.70-6.10); RED CELL DISTRIBUTION WIDTH 14.1 % (11.5-14.5)
[2018-04-02 12:02] LABS: ANION GAP 15 (8-16); BLOOD UREA NITROGEN 17 mg/dl (7-20); CALCIUM 8.9 mg/dl (8.4-10.2); CARBON DIOXIDE 27 mmol/L (21-31); CHLORIDE 106 mmol/L (97-110); CREATININE 1.17 mg/dl (0.61-1.24); GLUCOSE 125 mg/dl (70-220); MAGNESIUM 1.9 mg/dl (1.7-2.5); PHOSPHORUS 3.4 mg/dl (2.5-4.9); POTASSIUM 3.7 mmol/L (3.5-5.1); SODIUM 144 mmol/L (135-144)
[2018-04-02] MEDS ORDERED: LORAZEPAM 1 MG TAB PO (13:00)
[2018-04-02] MEDS: LORAZEPAM 1 MG TAB GTB (16:59)
[2018-04-02] MEDS ORDERED: LORAZEPAM 1 MG TAB GTB (19:00)
[2018-04-02] MEDS: FAMOTIDINE 20 MG TAB GTB (20:28)
== END 2018-04-02 21:30 | DRG 871 ==
LOC: ICU 00:31 → MS4 03-25 00:32 → TEL 03-28 19:10
PROVIDERS: Internal Medicine Nephrology
PROC: 0DJ08ZZ Inspection of Upper Intestinal Tract, Via Natural or Artificial Opening Endoscopic (ICD-10-PCS; principal; 2018-03-25 11:00)
PROC: 0DH63UZ Insertion of Feeding Device into Stomach, Percutaneous Approach (ICD-10-PCS; 2018-03-25 11:00)
DX: A41.9 Sepsis, unspecified organism (principal); K63.1 Perforation of intestine (nontraumatic); J69.0 Pneumonitis due to inhalation of food and vomit; J96.90 Respiratory failure, unspecified, unspecified whether with hypoxia or hypercapnia; K65.8 Other peritonitis; G93.41 Metabolic encephalopathy; I69.954 Hemiplegia and hemiparesis following unspecified cerebrovascular disease affecting left non-dominant side; N17.9 Acute kidney failure, unspecified; E87.0 Hyperosmolality and hypernatremia; I47.1 Supraventricular tachycardia; K94.29 Other complications of gastrostomy; R65.20 Severe sepsis without septic shock; R13.10 Dysphagia, unspecified; K62.89 Other specified diseases of anus and rectum; I10 Essential (primary) hypertension; K59.00 Constipation, unspecified; E78.5 Hyperlipidemia, unspecified; D64.9 Anemia, unspecified; E11.40 Type 2 diabetes mellitus with diabetic neuropathy, unspecified; E87.6 Hypokalemia; F41.9 Anxiety disorder, unspecified; I69.920 Aphasia following unspecified cerebrovascular disease
CPT/HCPCS: 71045; 74018; 80048; 80053; 81001; 81003; 82043; 82962; 83735; 84100; 84155; 84300; 85025; 85335; 85610; 85730; 87040; 87081; 92526; 92610

== ENCOUNTER 2018-04-22 11:30 | Day surgery (SDC) | payer OTHER ==
[~2018-04-22 11:30] MED LIST: LABETALOL HCL 20MG INJ IV; LIDOCAINE 2% (SDV) 5 ML INJ; ONDANSETRON 4 MG INJ IV; hydrALAzine 20 MG INJ IV
[2018-04-22] MEDS ORDERED: PROPOFOL 20 ML (11:43)
== END 2018-04-22 17:39 | disposition home or self-care (01) ==
LOC: GIL 11:30
DX: R13.10 Dysphagia, unspecified (principal); E78.5 Hyperlipidemia, unspecified; E11.9 Type 2 diabetes mellitus without complications; J44.9 Chronic obstructive pulmonary disease, unspecified; I69.354 Hemiplegia and hemiparesis following cerebral infarction affecting left non-dominant side
CPT/HCPCS: 43246